=== PATIENT | male | born 1990 | race African-American/Black ===

== ENCOUNTER 2017-01-22 11:31 | Emergency (ER) | payer BC, OTHER ==
[~2017-01-22] VITALS: Ht 170.2 cm; Wt 77.1 kg
[~2017-01-22 11:31] MED LIST: CLEOCIN HCL150 MG PO; NORCO 5-325 TA1 EACH PO
[2017-01-22] MEDS ORDERED: BACTRIM DS TAB1 EACH PO (13:44)
[2017-01-22] MEDS ORDERED: IBUPROFEN 800800 M1 PO (13:45)
== END 2017-01-22 13:58 | disposition home or self-care (01) ==
LOC: ER 11:31
DX: L02.411 Cutaneous abscess of right axilla (principal); F12.10 Cannabis abuse, uncomplicated

== ENCOUNTER 2019-12-05 17:46 | Emergency (ER) | payer OTHER ==
[~2019-12-05] VITALS: Ht 170.2 cm; Wt 77.1 kg
[~2019-12-05 17:46] MED LIST changes: +BACTRIM DS TAB1 EACH PO; +IBUPROFEN 800800 M1 PO
[2019-12-05] MEDS ORDERED: CLEOCIN HCL150 MG PO (19:32)
[2019-12-05] MEDS ORDERED: IBUPROFEN 800800 M1 PO (19:32)
[2019-12-05 19:35] VITALS: BP 120/72
== END 2019-12-05 19:35 | disposition home or self-care (01) ==
LOC: ER 17:46
DX: K04.7 Periapical abscess without sinus (principal)